=== PATIENT | female | born 1935 | race Caucasian/White ===

== ENCOUNTER 2017-02-15 21:59 | Emergency (ER) | payer MEDICARE, BC ==
[2017-02-15 23:05] LABS: #Basophils 0.1 thou/uL (0.0-0.2); #Eosinphils 0.1 thou/uL (0.0-0.7); #Lymphocytes 0.8 thou/uL (1.20-3.40); #Neutrophils 11.4 thou/uL (1.40-6.50); %Basophils 0.5 % (0.0-1.0); %Eosinophils 0.5 % (0.0-10.0); %Lymphocytes 6.1 % (21.0-51.0); %Monocytes 7.4 % (0.0-10.0); %Neutrophils 85.5 % (42.0-75.0); Hemoglobin 11.7 g/dL (12.0-16.0); Mean Corpuscular HGB CONC 32.5 g/dL (32.0-36.0); Mean Corpuscular Hemoglobin 29.1 pg (27.0-31.0); Mean Corpuscular Volume 89.6 fl (81.0-99.0); Mean Platelet Volume 7.8 fL (7.4-10.4); Platelet Count 176 thou/uL (130-400); RBC Distribution Width 13.1 % (11.5-14.5); White Blood Cell (WBC) Count 13.4 thou/uL (4.8-10.8)
[2017-02-15] MEDS ORDERED: Ondansetron HCl/PF 4 MG/2 ML Vial ONE (23:15)
[2017-02-15 23:18] LABS: ALT (SGPT) 18 U/L (8-55); AST (SGOT) 25 U/L (5-34); Albumin 3.9 g/dL (3.4-4.8); Alkaline Phosphatase 50 U/L (40-150); Anion Gap 13 mmol/L (10-20); BUN (Urea Nitrogen) 14 mg/dL (9.8-20.1); Bilirubin, Total 0.8 mg/dL (0.2-1.2); Calc. Creatinine Clearance 0 mL/min (70-130); Calcium 8.4 mg/dL (7.8-10.44); Carbon Dioxide 23 mmol/L (23-31); Chloride 100 mmol/L (98-107); Estimated GFR-MDRD 40; Globulin 2.5 g/dL (2.4-3.5); Glucose 136 mg/dL (83-110); Protein, Total 6.4 g/dL (6.0-8.3); Sodium 132 mmol/L (136-145)
[2017-02-15 23:32] LABS: Lipase Less than 4 U/L (8-78)
--- NOTE | 2017-02-15 23:55 | CT ---
ABDOMEN AND PELVIS CT WITH CONTRAST 02/15/17 CLINICAL HISTORY: Abdominal pain, constipation. FINDINGS: Mild volume loss at the lung bases is present. There is moderate distention of the gallbladder with large gallstones. Exophytic cyst of the left kidney is present. Small parenchymal hypodensities of t he right kidney are too small to further characterize. No adrenal mass or focal splenic lesion. Panc reas is atrophic. No focal hepatic lesion. There is wall prominence of the sigmoid colon with cony lonic fat stranding and mild ascites. Point of transition between inflamed colonic wall and normal a ppearing colonic wall is at the level of the mid descending colon. Mild colonic diverticulosis is se en. There is a moderate degree of retained fecal material throughout the colon. The bowel is incomp letely evaluated without the presence of enteric contrast. No pathologic dilatation of small bowel. No free air or portal venous gas. Diffuse vascular calcification present. Fat containing umbilical h ernia is present without associated inflammation. There is eventration of the midline ventral abdomi nal wall. Scattered osseous degenerative changes are present. IMPRESSION: 1. Evidence of acute colitis of the sigmoid colon and distal descending colon. Mild diverticulo sis is present within this region. However, the possibility of an ischemic or infectious/inflammator y process should be considered for the relatively long segment of colitis, which extends beyond the diverticula. There is injection of the adjacent mesenteric vascular branches. Surrounding pericoloni c fat stranding and ascites present. Recommend surgical consultation for further assessment. 2. Distended gallbladder with large gallstones. POS: RAIEL
[2017-02-16] MEDS ORDERED: Piperacillin/Tazobactam 3.375 GM VIAL ONE (00:07)
[2017-02-16 00:49] LABS: Bilirubin Negative (Negative); Blood, Urine Trace (Negative); Clarity Clear (Clear); Glucose, Urine (Dipstick) Negative (Negative); Leukocyte Small (Negative); Nitrite Negative (Negative); Protein, Urine (Dipstick) Negative (Neg-Trace); Urobilinogen 0.2 mg/dL (0.2-1.0); pH, Urine 5.5 (5.0-9.0)
[2017-02-16 00:50] LABS: Specific Gravity, Urine 1.016 (1.002-1.036)
[2017-02-16 00:59] LABS: Bacteria/HPF Rare-Few HPF (None Seen); RBC/HPF 0-3 HPF (0-3); Squamous Epithelial 0-3 HPF (0-3)
== END 2017-02-16 00:44 | disposition short-term general hospital (02) ==
LOC: BURERS 21:59
DX: K52.9 Noninfective gastroenteritis and colitis, unspecified (principal); K59.00 Constipation, unspecified; Z79.899 Other long term (current) drug therapy
CPT/HCPCS: 74177; 80053; 81003; 81015; 83605; 83690; 85025; 96361; 96374; 96375; J2405; J2543

== ENCOUNTER 2019-10-04 15:00 | Outpatient (CLI) | payer MEDICARE, BC ==
--- NOTE | 2019-10-04 21:22 | RAD ---
LEFT FOOT THREE VIEWS: 10/04/19 Severe hallux valgus is present with hammertoe deformities. Regarding the second toe, no gross bony d estructive lesion was seen to suggest osteomyelitis. Periosteal reaction seen throughout the metatars al shaft is probably age related. No bony destructive lesions were seen at any point on the exam. A s mall calcaneal spur was noted. IMPRESSION: Chronic changes but no acute findings. POS: HOME
== END 2019-10-04 15:01 | disposition home or self-care (01) ==
LOC: BURRAD 15:00
PROVIDERS: ATTEND Podiatrist Foot & Ankle Surgery
DX: L97.529 Non-pressure chronic ulcer of other part of left foot with unspecified severity (principal)

== ENCOUNTER 2021-10-04 09:01 | Emergency (ER) | payer OTHER, MEDICARE ==
[2021-10-04 10:00] LABS: Hemoglobin 11.3 g/dL (12.0-16.0); Mean Corpuscular HGB CONC 33.3 g/dL (32.0-36.0); Mean Corpuscular Volume 90.2 fL (78.0-98.0); Mean Platelet Volume 8.1 fL (7.4-10.4); Platelet Count 151 thou/uL (130-400); RBC Distribution Width 12.4 % (11.5-14.5); Red Blood Cell (RBC) Count 3.76 mill/uL (4.20-5.40); White Blood Cell (WBC) Count 10.9 thou/uL (4.8-10.8)
[2021-10-04 10:04] LABS: Band 16 % (5-11); Lymphocytes 5 % (21-51); MDiff Complete? YES; Monocytes 10 % (0-10); Neutrophil 67 % (42-75); Reactive Lymphocytes 2 % (0-10)
[2021-10-04 10:05] LABS: ALT (SGPT) 26 U/L (8-55); AST (SGOT) 47 U/L (5-34); Albumin 3.6 g/dL (3.4-4.8); Alkaline Phosphatase 57 U/L (40-110); Anion Gap 16 mmol/L (10-20); BUN (Urea Nitrogen) 26 mg/dL (9.8-20.1); Bilirubin, Total 0.6 mg/dL (0.2-1.2); Calc. Creatinine Clearance 0 mL/min (70-130); Calcium 8.5 mg/dL (7.8-10.44); Carbon Dioxide 21 mmol/L (23-31); Chloride 101 mmol/L (98-107); Globulin 2.4 g/dL (2.4-3.5); Glucose 118 mg/dL (83-110); Potassium 3.4 mmol/L (3.5-5.1); Sodium 135 mmol/L (136-145)
[2021-10-04] MEDS ORDERED: Ondansetron PF 4 MG/2 ML Vial ONE (10:15)
[2021-10-04 10:20] LABS: Lipase Less than 4 U/L (8-78)
[2021-10-04 12:47] LABS: Bilirubin Negative (Negative); Blood, Urine Moderate (Negative); Clarity Cloudy (Clear); Glucose, Urine (Dipstick) Negative (Negative); Ketone, Urine Negative (Negative); Leukocyte Moderate (Negative); Nitrite Negative (Negative); Protein, Urine (Dipstick) 30 mg/dL (Neg-Trace); Urobilinogen 0.2 mg/dL (Less than 2); pH, Urine 5.5 (5.0-9.0)
[2021-10-04 12:53] LABS: Bacteria/HPF 3+ HPF (None Seen); Renal Epithelial 0-3 HPF (None Seen); WBC/HPF 21-50 HPF (0-3)
[2021-10-04] MEDS ORDERED: cefTRIAXone\\ROCEPHIN 1 GM VIAL ONE (13:00)
== END 2021-10-04 13:30 | disposition home or self-care (01) ==
LOC: BURERS 09:01
DX: N39.0 Urinary tract infection, site not specified (principal); E86.9 Volume depletion, unspecified; E03.9 Hypothyroidism, unspecified; I10 Essential (primary) hypertension; Z79.899 Other long term (current) drug therapy
CPT/HCPCS: 80053; 81003; 81015; 83690; 85025; 94760; 96374; 96375; J0696; J2405